=== PATIENT | male | born 1970 | race Caucasian/White ===

== ENCOUNTER 2016-11-14 00:34 | Observation (INO) | payer BC ==
[2016-11-14] VITALS (8 sets, daily range): BP systolic 92–142; BP diastolic 57–85
[~2016-11-14] VITALS: Ht 170.2 cm; Wt 75.1 kg
--- NOTE | ~2016-11-14 | S ---
[facility] [place] [address] SURGICAL PATH RPT PROCEDURE Name: DANIELLA SALAZAR III Room #: 419-P [facility] Sami Ruiz#: [id number] Admission: 11/14/16 Date of : 68 Discharge: 11/14/16 Report #: [id number] Path Case #: [id number] PATHOLOGY REPORT COLLECTION DATE: 11/14/2016 RECEIVED DATE: 11/14/2016 SUBMITTING PHYS: Dr. Rene Diaz, DO OTHER PHYS: SPECIMEN(S) RECEIVED: A.Appendix * * * * * * * * * * * * FINAL DIAGNOSIS: "Appendix", appendectomy: - Scute suppurative appendicitis. (CLW:rhiannon; 11/15/2016) PATHOLOGIST: Joslyn Orta M.D. REPORT ELECTRONICALLY SIGNED BY: Joslyn Orta M.D. DATE/TIME: 11/15/2016 15:12 * * * * * * * * * * * * GROSS PATHOLOGY: Received in formalin labeled "Daniella Salazar, appendix," is an appendix measuring 5.7 cm in length and 0.8 cm in diameter with a moderate amount of attached mesoappendix. The serosal surface is dusky, purple-red with numerous adhesions and areas of exudate. Sectioning reveals diffusely congested, purple-red mucosa. The patent lumen contains blood-tinged fecal material. No mass lesions or transmural defects are noted. Billing Representative sections are submitted in cassette A1. (JWP; 11/14/2016) CLINICAL HISTORY: Appendicitis INITIAL CPT CODE(S): A; 15516 Professional services performed by [facility] at [facility] [address], [place] [address] Technical services performed by [facility] at [address] [place] [id number] [facility] [address] [place] [address] SURGICAL PATH RPT PROCEDURE Name: DANIELLA SALAZAR [facility] Room #: 419-P CK Ruiz#: [id number] Admission: 11/14/16 Date of : 68 Discharge: 11/14/16 Report #: [id number] Path Case #: [id number] [facility] [address] [address] PHONE: [phone] DIRECTOR: Alen Corona M.D. * * * END OF REPORT * * *
[2016-11-14] MEDS ORDERED: VYVANSE70 MG PO (03:35)
[2016-11-14 05:05] LABS: HEMATOCRIT 40.9 % (42.0-52.0); HEMOGLOBIN 13.6 gm/dL (14.0-18.0); MCH 30.3 pg (26.0-34.0); MCHC 33.3 g/dL (28.0-37.0); RBC 4.5 mil/uL (4.50-6.00); RDW 13.1 % (10.5-14.5); WBC 12.9 thou/uL (4.0-11.0)
[2016-11-14 05:35] LABS: ALBUMIN 3.6 g/dL (3.4-5.0); CALCIUM 8.4 mg/dL (8.5-10.1); CREATININE 0.9 mg/dL (0.7-1.3); POTASSIUM 3.5 mmol/L (3.5-5.1); TOTAL PROTEIN 6.5 g/dL (6.4-8.2)
[2016-11-14] MEDS ORDERED: COLACE 100 MG100 MG PO (11:29)
[2016-11-14] MEDS ORDERED: ZOFRAN ODT4 MG DISSOLVE (11:31)
[2016-11-14] MEDS ORDERED: HYDROCODONE-AP1 EAC6 PO (11:31)
== END 2016-11-14 15:00 | disposition home or self-care (01) ==
LOC: 4E 00:34
PROVIDERS: Surgery
DX: K35.3 Acute appendicitis with localized peritonitis (principal); R10.31 Right lower quadrant pain; Z72.89 Other problems related to lifestyle; F17.210 Nicotine dependence, cigarettes, uncomplicated
CPT/HCPCS: 50010; 50101; 50249; 50411; 50555; 50558; 50739; 50740; 50962; 51489; 51975; 52265; 53307; 54022; 54118; 56526; 56527; 62110; 62900; 70005